=== PATIENT | female | born 1955 | race Two or more races ===

== ENCOUNTER 2024-07-04 21:56 | Emergency (ER) | payer MEDICARE, SELFPAY ==
--- NOTE | 2024-07-04 22:15 | XR_ITS ---
Examination: CT brain head without contrast. 2-D sagittal coronal reconstructions Date and time of exam:July 04, 2024 1033 hrs. Indications: Injury to the head today with laceration involving the top of the head CTDI: vol (mGy):43.8 DLP: (mGycm):874 Technique: Multiple CT axial sections of the brain have been obtained, 5 mm slice thickness. Contrast has not been administered. 2-D sagittal, coronal reconstructions have been obtained Low dose protocols were performed. One or more of the following dose reduction techniques were used; automated exposure control, adjustment of the mA and/or KV according to patient size, use of iterative reconstruction technique. Findings: No significant ventricular enlargement. Intra-axial or extra-axial hemorrhage density is not seen. No mass effect or midline shift Basal cisterns are not remarkable. Fourth ventricle is midline. Cranial vault intact. Impression: Negative for acute hemorrhage, mass effect or midline shift
--- NOTE | 2024-07-04 22:16 | EDRME_ITS ---
Rapid Medical Screening Exam RME Arrival date/time: 07/04/24 21:56 69-year-old female with no significant past medical history no blood thinner use presents emergency department complaining of laceration to top of scalp above forehead after she was struck by heavy object while at work. Patient reports works at a [employer] house. Denies any LOC. Patient unsure if she is up-to-date with tetanus vaccine. Chief Complaint: Wound/Laceration Time Seen by Provider: 07/04/24 22:15 Vital signs reviewed by provider: Yes
[2024-07-04 22:18] VITALS: BP 187/91; PULSE 102; RESP 18; TEMP 36.7; O2SAT 98
[2024-07-04] MEDS: DIPHTH,PERTUSS(ACELL),TET VAC 0.5 ML SYR IMi (22:44)
[2024-07-04] MEDS: LIDOCAINE HCL 1% 20 ML VIAL INFL (22:47)
--- NOTE | 2024-07-04 23:45 | EDNOTE_ITS ---
<Statement entered by Ema Harper MD - 07/05/24 02:17> As co-signing physician, I was present and available for consult prn. I concur with the plan and care as documented by the midlevel provider. ED Wound/Laceration-RME/HPI General Chief Complaint: Wound/Laceration Stated Complaint: LACERATION TOP OF HEAD Time Seen by Provider: 07/04/24 22:15 Source: patient and family Arrival date/time: 07/04/24 21:56 69-year-old female with no significant past medical history no blood thinner use presents emergency department complaining of laceration to top of scalp above forehead after she was struck by heavy object while at work. 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 Denies any LOC. Patient unsure if she is up-to-date with tetanus vaccine. Mode of arrival: ambulatory Limitations: no limitations RME / HPI RME / HPI narrative: 07/04/24 21:56 69-year-old female with no significant past medical history no blood thinner use presents emergency department complaining of laceration to top of scalp above forehead after she was struck by heavy object while at work. 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 Denies any LOC. Patient unsure if she is up-to-date with tetanus vaccine. Related Data Allergies Allergy/AdvReac Type Severity Reaction Status Date / Time No Known Allergies Allergy Verified 07/04/24 21:56 Review of Systems Review of Systems Systems Reviewed: All systems reviewed, normal except as documented Constitutional Constitutional: Reports system reviewed and no additional complaints, except as documented, Denies body ache(s), Denies chills and Denies fever(s) Eyes Eyes: Reports system reviewed and no additional complaints, except as documented and Denies change in vision ENT Ears, Nose, Mouth, and Throat: Reports system reviewed and no additional complaints, except as documented, Denies disequilibrium, Denies dizziness, Denies sore throat and Denies vertigo Cardiovascular Cardiovascular: Reports system reviewed and no additional complaints, except as documented, Denies chest pain and Denies dyspnea Respiratory Respiratory: Reports system reviewed and no additional complaints, except as documented, Denies chest congestion, Denies cough and Denies dyspnea Gastrointestinal Gastrointestinal: Reports system reviewed and no additional complaints, except as documented, Denies abdominal pain, Denies nausea and Denies vomiting Musculoskeletal Musculoskeletal: Reports system reviewed and no additional complaints, except as documented, Denies abnormal gait and Denies arthralgias Integumentary/Breasts Skin/Breast: Reports system reviewed and no additional complaints, except as documented, Denies erythema, Denies rash and Reports wounds Neurologic Neurologic: Reports system reviewed and no additional complaints, except as documented, Denies abnormal gait, Denies disequilibrium, Denies dizziness and Denies vertigo Past Medical History Social History SMOKING STATUS: Never smoker ED Exam General Limitations: Present no limitations General appearance: Present alert and in no apparent distress Head Head exam: Present atraumatic Expanded Head Exam Head exam physical: Present laceration Head image: 2 1. Approximately 4 cm laceration Eye Eye exam: Present normal appearance, PERRL and EOMI ENT ENT exam: Present normal exam, normal oropharynx and mucous membranes moist Neck Neck exam: Present normal inspection, full ROM and trachea midline Chest Chest inspection: Present normal inspection and symmetric chest wall rise Respiratory Respiratory exam: Present normal lung sounds bilaterally Cardiovascular Cardiovascular exam: Present regular rate, normal rhythm and normal heart sounds Abdominal Exam Abdominal exam: Present soft and normal bowel sounds Extremities Exam Extremities exam: Present normal inspection and full ROM Back Exam Back exam: Present normal inspection and full ROM Neurological Exam Neurological exam: Present alert, oriented X3 and CN II-XII intact Psychiatric Psychiatric exam: Present normal affect and normal mood Skin Skin exam: Present warm, dry, intact and normal color Course Quality Measures none Orders Category Date Time Status Set Up Suture Tray STAT Care 07/04/24 22:15 Completed Wound Care [Wound Care] NOW Care 07/04/24 22:[address] head/brain wo con Stat Exams 07/04/24 22:15 Completed Lidocaine 1% 20 ml [Xylocaine 1% 20 ML] Med 07/04/24 22:15 Discontinued 20 ml INFL X1 ONE Tet,Diphth,Pertuss(Acell)-Tdap [Boostrix Vacc] Med 07/04/24 22:15 Discontinued 0.5 ml IMI .ONCE ONE Vital Signs Vital signs: Vital Signs Temperature 98.1 F 07/04/24 22:18 Pulse Rate 102 H 07/04/24 22:18 Respiratory Rate 18 07/04/24 22:18 Blood Pressure 187/91 H 07/04/24 22:18 Pulse Oximetry (%) 98 07/04/24 22:18 Oxygen Delivery Method Room Air 07/04/24 22:18 98% room air within normal limits Procedures -ED Laceration Laceration 1: Site: scalp Size (cm): 4 Description: linear Depth: simple, single layer Local Anesthetic: lidocaine 1% Amount of anesthesia used (mL): 1 Pre-repair: wound explored and irrigated extensively Skin layer closed with: other (Prolene) Size (cm): 4-0 Number of sutures: 5 Technique: simple, interrupted Wound / Laceration MDM Narrative MDM Narrative:: 69-year-old female with no significant past medical history no blood thinner use presents emergency department complaining of laceration to top of scalp above forehead after she was struck by heavy object while at work. Patient reports works at a [employer] house. Denies any LOC. Patient unsure if she is up-to-date with tetanus vaccine. CT scan was unremarkable. Patient GCS of 15 with steady gait. Laceration to top of scalp cleansed with copious amounts of normal saline. Using 4-0 Prolene and 1% lidocaine as local anesthetic verbal consent obtained 5 simple interrupted sutures were used to approximate wound patient tolerated well. After sutures were applied bleeding was controlled and dressing was applied. Patient and daughter instructed to monitor for signs of infection. Instructed will need to return in 7 to 10 days for suture removal. Instructed to follow-up with primary care provider in 2 to 3 days. Patient stable for discharge. Patient data External records reviewed:: None Clinical information provided by:: patient Social determinants that could affect healthcare access:: none Patient has the following chronic illnesses:: None How is presenting disease/condition affected by chronic disease/condition?: no chronic disease Evaluation data The following diagnostics were reviewed and interpreted by me:: radiology exam(s) Lab and/or radiology exams considered but not ordered:: Ordered Interpretation Summary: Interpreted by me Medications / Prescriptions Medications or Prescriptions considered but not ordered:: Ordered Medication administrations:: Medication Administration History Discontinued Medications Diphtheria/Tetanus/Acell Pertussis (Diphth,Pertuss(Acell),Tet Vac 0.5 Ml Syr) 0.5 ml IMi .ONCE ONE Stop: 07/04/24 22:16 Last Admin: 07/04/24 22:44 Dose: 0.5 ml Documented By: LISA Lidocaine HCl (Lidocaine Hcl 1% 20 Ml Vial) 20 ml INFL X1 ONE Stop: 07/04/24 22:16 Last Admin: 07/04/24 22:47 Dose: 20 ml Documented By: KF Given Consultations Consultation(s) initiated? (list below): No Diagnosis Wound Differential Diagnosis: laceration Most likely diagnosis given after review of the tests above:: Laceration of scalp Admission Indicated Admission indicated?: not indicated Admission Request Was there a request for admission?: No Disposition Plan Disposition Plan: Discharge Discharge Attestation Discharge Attestation: The patient and all family members were given an opportunity to ask questions and understood the discharge instructions. Discharge instructions specifically effects, indications for sooner follow up or return to the emergency department, and the expected course of current diagnosis. Patient condition: Stable Discharge Plan Plan Patient Disposition: HOME (Self Care) Disposition Comment: Stable Prescriptions/Referrals Referrals: Jovani Ocampo MD [Primary Care Provider] - In 1 week Problem List Clinical Impression: Laceration of scalp Patient/Caregiver Discharge Instructions Discharge Activity: activity as tolerated Education Materials: ED Laceration: All Closures Additional Instructions: Keep dressing on for the first 24 hours due to bleeding. After 24 hours may wash with warm water and soap. Pat dry and keep clean dry and open to air. Monitor for any signs of infection. Return to emergency department with primary care provider's office in 7 to 10 days for suture removal. Return immediately to emergency department for any increased bleeding, signs of infection, worsening symptoms, or as needed. Print Language: Yakut Stand Alone Forms: Venecia Award Info., Work/School Release, Patient Portal Info Letter Vaccines Vaccines Given During Stay: TDaP CARMELO Supervising Physician CARMELO Supervising Physician: Dr. Harper
== END 2024-07-05 00:10 | disposition home or self-care (01) ==
PROVIDERS: Emergency Provider Emergency Medicine; PCP Family Medicine
DX: S01.01XA Laceration without foreign body of scalp, initial encounter (principal); Z23 Encounter for immunization; W22.8XXA Striking against or struck by other objects, initial encounter; Y99.0 Civilian activity done for income or pay
CPT/HCPCS: 12002; 70450; 90471; 90715; 99284; J3490

== ENCOUNTER 2024-07-12 15:52 | Emergency (ER) | payer MEDICARE, SELFPAY ==
[2024-07-12 15:52] VITALS: BMI 21.9
[2024-07-12 16:15] VITALS: BP 161/91; PULSE 92; RESP 18; TEMP 36.8; O2SAT 96
--- NOTE | 2024-07-12 16:22 | PD.EDWOUND ---
ED Wound/Laceration-RME/HPI General Chief Complaint: Wound Recheck / Suture Removal Stated Complaint: SUTURE REMOVAL Time Seen by Provider: 07/12/24 16:12 Source: patient Arrival date/time: 07/12/24 15:52 69-year-old female with no known medical history presents to the emergency room with a chief complaint of needing sutures removed from her scalp. Mode of arrival: ambulatory Limitations: no limitations Related Data Allergies Allergy/AdvReac Type Severity Reaction Status Date / Time No Known Allergies Allergy Verified 07/04/24 21:56 Past Medical History Social History SMOKING STATUS: Never smoker ED Exam General Limitations: Present no limitations General appearance: Present alert and in no apparent distress Head Head exam: Present atraumatic Eye Eye exam: Present normal appearance, PERRL and EOMI ENT ENT exam: Present normal exam, normal oropharynx and mucous membranes moist Neck Neck exam: Present normal inspection, full ROM and trachea midline Chest Chest inspection: Present normal inspection and symmetric chest wall rise Respiratory Respiratory exam: Present normal lung sounds bilaterally Cardiovascular Cardiovascular exam: Present regular rate, normal rhythm and normal heart sounds Abdominal Exam Abdominal exam: Present soft and normal bowel sounds Extremities Exam Extremities exam: Present normal inspection and full ROM Back Exam Back exam: Present normal inspection and full ROM Neurological Exam Neurological exam: Present alert, oriented X3 and CN II-XII intact Psychiatric Psychiatric exam: Present normal affect and normal mood Skin Skin exam: Present warm, dry, intact and normal color Course Quality Measures none Orders Category Date Time Status Suture / Staple Removal NOW Care 07/12/24 16:27 Active Vital Signs Vital signs: Vital Signs Temperature 98.3 F 07/12/24 16:15 Pulse Rate 92 07/12/24 16:15 Respiratory Rate 18 07/12/24 16:15 Blood Pressure 161/91 H 07/12/24 16:15 Pulse Oximetry (%) 96 07/12/24 16:15 Oxygen Delivery Method Room Air 07/12/24 16:15 O2 saturation 96% within normal limits Wound / Laceration MDM Narrative MDM Narrative:: 69-year-old female with no known medical history presents to the emergency room with a chief complaint of needing sutures removed from her scalp. Patient is hemodynamically stable and in no apparent distress Patient states she is just here to remove the sutures from the front area of her scalp that were put in on July 08. The sutures were all removed with no complications there was 5 sutures. There are no signs of any infection there is no discharge and the wound is closed and approximated. Patient was educated to return to the emergency room for any evidence of worsening signs or symptoms Patient data External records reviewed:: [facility] previous records Clinical information provided by:: patient Social determinants that could affect healthcare access:: none Patient has the following chronic illnesses:: No chronic illness How is presenting disease/condition affected by chronic disease/condition?: no chronic disease Evaluation data The following diagnostics were reviewed and interpreted by me:: lab results and radiology exam(s) Lab and/or radiology exams considered but not ordered:: Labs and radiology exams considered and ordered Interpretation Summary: N/A Medications / Prescriptions Medications or Prescriptions considered but not ordered:: No medication given Medication administrations:: No medication given Consultations Consultation(s) initiated? (list below): No Diagnosis Wound Differential Diagnosis: laceration, abrasion and other (Suture removal) Most likely diagnosis given after review of the tests above:: Suture removal Admission Indicated Admission indicated?: not indicated Admission Request Was there a request for admission?: No Disposition Plan Disposition Plan: Discharge Discharge Attestation Discharge Attestation: The patient and all family members were given an opportunity to ask questions and understood the discharge instructions. Discharge instructions specifically effects, indications for sooner follow up or return to the emergency department, and the expected course of current diagnosis. Patient condition: Stable Discharge Plan Plan Patient Disposition: HOME (Self Care) Disposition Comment: Stable Problem List Clinical Impression: Encounter for removal of sutures Patient/Caregiver Discharge Instructions Education Materials: ED Suture Removal, Infected Wound Additional Instructions: For any evidence of worsening signs or symptoms please return to the emergency room immediately Print Language: Greenlandic Stand Alone Forms: Venecia Award Info., Patient Portal Info Letter PA/DIRECTOR ENGINEERING Supervising Physician LAQUITA/JOO Supervising Physician: Dr. Bill
== END 2024-07-12 16:26 | disposition home or self-care (01) ==
LOC: SERX 16:28
PROVIDERS: Emergency Provider Emergency Medicine; PCP Family Medicine
DX: S01.01XD Laceration without foreign body of scalp, subsequent encounter (principal); X58.XXXD Exposure to other specified factors, subsequent encounter
CPT/HCPCS: 99282